=== PATIENT | male | born 1975 ===

== ENCOUNTER 2021-06-09 04:30 | Emergency (ER) | payer BC ==
[2021-06-09] MEDS ORDERED: Ketorolac 15 MG/ML SDV IVPUSH ONE (04:59)
[2021-06-09] MEDS ORDERED: Methocarbamol 500 MG Tab PO ONE (05:00)
== END 2021-06-09 07:30 | disposition home or self-care (01) ==
LOC: JD.ED 04:30
DX: J90 Pleural effusion, not elsewhere classified (principal); M54.50 Low back pain, unspecified; K21.9 Gastro-esophageal reflux disease without esophagitis; Z79.899 Other long term (current) drug therapy; Z20.822 Contact with and (suspected) exposure to COVID-19
CPT/HCPCS: 36415; 71045; 71275; 80053; 84484; 85025; 85379; 85610; 87635; 93005; 96374; 99285; A9270; J1885; U0002